=== PATIENT | female | born 1965 | race Caucasian/White ===

== ENCOUNTER 2019-08-07 17:27 | Inpatient (IN) | payer OTHER ==
[~2019-08-07] VITALS: Ht 162.6 cm; Wt 126.9 kg
[2019-08-07] MEDS ORDERED: POTA8 PO (17:44)
[2019-08-07] MEDS ORDERED: GABA300 PO (17:44)
[2019-08-07] MEDS ORDERED: FURO40 PO (17:44)
[2019-08-07] MEDS ORDERED: BACL20 PO (17:45)
[2019-08-07] MEDS ORDERED: Catapres-Tts 11 EACH PO (17:45)
[2019-08-07] MEDS ORDERED: AMLO10 PO (17:45)
[2019-08-07] MEDS ORDERED: ALLO100 PO (17:46)
[2019-08-07] MEDS ORDERED: LISI20 PO (17:46)
[2019-08-07] MEDS ORDERED: MELO7.5 PO (17:46)
[2019-08-07] MEDS ORDERED: NICO21TP TOP (17:47)
[2019-08-07] MEDS ORDERED: TIOT18 INH (17:47)
[2019-08-07 18:04] LABS: PCO2 Arterial 60.1 mmHg (35-45); PO2 Arterial 77.4 mmHg (80-100); pH Blood Arterial 7.35 (7.35-7.45)
[2019-08-07 18:15] LABS: BASOPHILS ABSOLUTE AUTO 0.03 K/mm3 (0.00-0.23); BASOPHILS PERCENT AUTO 1 % (0-2); EOSINOPHILS ABSOLUTE AUTO 0.09 K/mm3 (0.00-0.68); EOSINOPHILS PERCENT AUTO 1 % (0-6); Hematocrit 47.4 % (33.0-51.0); Hemoglobin 14.4 g/dL (11.5-16.0); IMMATURE GRAN ABSOLUTE AUTO 0.02 K/mm3 (0.00-0.10); IMMATURE GRAN PERCENT AUTO 0 % (0-1); LYMPHOCYTES ABSOLUTE AUTO 1.52 K/mm3 (0.84-5.20); LYMPHOCYTES PERCENT AUTO 24 % (21-46); MONOCYTES ABSOLUTE AUTO 0.37 K/mm3 (0.16-1.47); MONOCYTES PERCENT AUTO 6 % (4-13); Mean Corpuscular HGB 26.7 pg (26.0-34.0); Mean Corpuscular HGB Conc 30.4 g/dL (31.5-36.5); Mean Corpuscular Volume 88 fL (80-100); Mean Platelet Volume 9.6 fL (9.1-12.4); NEUTROPHILS ABSOLUTE AUTO 4.42 K/mm3 (1.96-9.15); NEUTROPHILS PERCENT AUTO 69 % (41-73); Platelet Count 244 K/mm3 (150-400); RDW Standard Deviation 63.1 fL (35.1-46.3); White Blood Cell Count 6.45 K/mm3 (4.00-11.30)
[2019-08-07 18:48] LABS: Alanine Aminotransfer (ALT/SGP 21 U/L (12-78); Albumin, Blood 2.8 g/dL (3.4-5.0); Albumin/Globulin Ratio 0.7 (0.8-1.8); Alk Phos 117 U/L (50-136); Anion Gap 6 mmol/L (6-16); Aspartate Aminotrans (AST/SGOT 16 U/L (12-37); Bilirubin, Total 0.3 mg/dL (0.1-1.0); Blood Urea Nitrogen 15 mg/dL (8-24); Bun/Creatinine Ratio 21.1 (12.0-20.0); CO2, Blood 30 mmol/L (21-32); Calcium, Blood 8.8 mg/dL (8.5-10.1); Chloride, Blood 101 mmol/L (98-108); Creatinine, Blood 0.71 mg/dL (0.40-1.00); Globulin, Blood 4.1 g/dL (2.2-4.0); Glomerular Filtration Rate >60 (60-); Glucose, Blood 319 mg/dL (70-99); Magnesium, Blood 2.2 mg/dL (1.6-2.4); Potassium, Blood 4.3 mmol/L (3.5-5.5); Sodium, Blood 137 mmol/L (136-145); Total Protein, Blood 6.9 g/dL (6.4-8.2); Troponin I <0.015 ng/mL (0.000-0.040)
[2019-08-07] MEDS ORDERED: CLON.1 PO (22:13)
[2019-08-07] MEDS ORDERED: FLUT1DIS5 INH (22:16)
[2019-08-08 03:01] LABS: BASOPHILS ABSOLUTE AUTO 0.02 K/mm3 (0.00-0.23); BASOPHILS PERCENT AUTO 0 % (0-2); EOSINOPHILS ABSOLUTE AUTO 0.01 K/mm3 (0.00-0.68); EOSINOPHILS PERCENT AUTO 0 % (0-6); Hematocrit 53.5 % (33.0-51.0); Hemoglobin 15.7 g/dL (11.5-16.0); IMMATURE GRAN ABSOLUTE AUTO 0.05 K/mm3 (0.00-0.10); IMMATURE GRAN PERCENT AUTO 1 % (0-1); LYMPHOCYTES PERCENT AUTO 6 % (21-46); MONOCYTES ABSOLUTE AUTO 0.03 K/mm3 (0.16-1.47); MONOCYTES PERCENT AUTO 0 % (4-13); Mean Corpuscular HGB 26.3 pg (26.0-34.0); Mean Corpuscular HGB Conc 29.3 g/dL (31.5-36.5); Mean Corpuscular Volume 90 fL (80-100); Mean Platelet Volume 10.1 fL (9.1-12.4); NEUTROPHILS ABSOLUTE AUTO 6.75 K/mm3 (1.96-9.15); NEUTROPHILS PERCENT AUTO 93 % (41-73); Platelet Count 257 K/mm3 (150-400); RDW Coefficient Variation 20.2 % (11.7-14.2); RDW Standard Deviation 66.2 fL (35.1-46.3); Red Blood Cell Count 5.97 M/mm3 (3.80-5.20); White Blood Cell Count 7.26 K/mm3 (4.00-11.30)
[2019-08-08 03:22] LABS: Anion Gap 4 mmol/L (6-16); Blood Urea Nitrogen 17 mg/dL (8-24); Bun/Creatinine Ratio 29.5 (12.0-20.0); CO2, Blood 28 mmol/L (21-32); Calcium, Blood 8.3 mg/dL (8.5-10.1); Chloride, Blood 104 mmol/L (98-108); Creatinine, Blood 0.58 mg/dL (0.40-1.00); Glomerular Filtration Rate >60 (60-); Glucose, Blood 388 mg/dL (70-99); Potassium, Blood 5.3 mmol/L (3.5-5.5); Sodium, Blood 136 mmol/L (136-145)
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
--- NOTE | 2019-08-08 07:43 | NUR ---
AM NOTE... ASSUMED CARE OF PT APROX 0700. PT IS A&Ox4 AND SBA IN THE ROOM. PT WAS ADMITTED FOR RESP FAILURE. PT IS ON BIPAP PRN AT 40% FIO2 AND 4-6L NC CONT. L/S COARSE AND DIM T/O WITH FINE CRACKLES NOTED IN THE RLL. PT'S VS STABLE AT THIS TIME, PT IS IN SINUS TACH IN THE LOW 100'S. PT HAS TRACE EDEMA NOTED TO HER BLE. PT IS IN DROPLET ISLOATION FOR R/O COVID-19. CALL LIGHT IN REACH WILL CONTINUE TO MONITOR.
[2019-08-08 08:42] LABS: U Amphetamine Screen Not Detected; U Barbituate Screen Not Detected; U Benzodiazapine Screen Not Detected; U Buprenorphine Screen Not Detected; U Cannabinoids Screen DETECTED; U Cocaine Screen Not Detected; U Methadone Screen Not Detected; U Methamphetamine Screen DETECTED; U Opiates Screen Not Detected; U Oxycodone Screen Not Detected; U Phencyclidine Screen Not Detected; U Propoxyphene Screen Not Detected
[2019-08-08 10:02] LABS: Adenovirus Not Detected (NOT DETECT); Bordetella pertussis Not Detected (NOT DETECT); Chlamydophila pneumoniae Not Detected (NOT DETECT); Coronavirus 229E Not Detected (NOT DETECT); Coronavirus HKU1 Not Detected (NOT DETECT); Coronavirus NL63 Not Detected (NOT DETECT); Coronavirus OC43 Not Detected (NOT DETECT); Human Metapneumovirus Not Detected (NOT DETECT); Human Rhinovirus/Enterovirus Not Detected (NOT DETECT); Influenza A/2009-H1 Not Detected (NOT DETECT); Influenza A/H1 Not Detected (NOT DETECT); Influenza A/H3 Not Detected (NOT DETECT); Influenza B Not Detected (NOT DETECT); Mycoplasma pneumoniae Not Detected (NOT DETECT); Parainfluenza Virus 1 Not Detected (NOT DETECT); Parainfluenza Virus 2 Not Detected (NOT DETECT); Parainfluenza Virus 3 Not Detected (NOT DETECT); Parainfluenza Virus 4 Not Detected (NOT DETECT); Respiratory Syncytial Virus Not Detected (NOT DETECT)
--- NOTE | 2019-08-08 18:27 | NUR ---
SHIFT SUMMARY... NO ACUTE NEGATIVE CHANGES NOTED THIS SHIFT. PT'S VS HAVE BEEN STABLE. PT HAS BEEN ON THE BIPAP WITH SLEEP, WHEN AWAKE PT HAS BEEN ON 6L NC WITH O2 SATS 88-92%. PT STATES THESE ARE BETTER NUMBERS THAN SHE NORMALLY HAS AT BASELINE. PT HAS BEEN IND TO THE BSC. BEDBATH/SHAMPOO/SHAVE WAS GIVEN TO THE PT THIS AFTERNOON. CALL LIGHT IN REACH WILL CONTINUE TO MONITOR UNTIL REPORT IS GIVEN TO ONCOMING RN.
--- NOTE | 2019-08-09 02:02 | NUR ---
ASSUMED CARE OF PATIENT AT [facility] 1900 FROM EDNA Cain RN. PATIENT ALERT AND ORIENTED X4; INDEPDENDENT TO BEDSIDE COMMODE PER DAYSHIFT. PATIENT ANXIOUS; REPORTS SHE THINKS HER NICOTINE PATCH IS WEARING OFF. PATIENT ANXIOUS ABOUT GETTING DISCHARGED. PATIENT DENIES PAIN, NUMBNESS, DIZZINESS OR NAUSEA. PATIENT REPORTS SHE IS ALWAYS HUNGRY AND REPORTS HER TONGUE HAS TINGLING AT TIMES. ST ON TELE; OXYGEN SATURATION ABOVE 90% ON 6LPM VIA NC; REQUESTED HIGH FLOW NC FROM RT; PATIENT USES BIPAP AT ALSO W/ 60% FIO2. PIV X2 S/L. PATIENT CURRENTLY RESTING IN BED; CALL LIGHT IN REACH; BED IN LOWEST POSISTION; WILL CONTINUE TO MONITOR AND ASSESS UNTIL END OF SHIFT.
--- NOTE | 2019-08-09 06:11 | NUR ---
PATIENT SLEPT ABOUT EIGHT HOURS; FIVE HOURS WITH BIPAP ON. VSS. NO OTHER ACUTE CHANGES TO REPORT. WILL CONTINUE TO MONITOR AND ASSESS UNTIL END OF SHIFT.
--- NOTE | 2019-08-09 07:38 | NUR ---
AM NOTE... ASSUMED CARE OF PT APROX 0700. PT IS A&Ox4 AND IND IN THE ROOM. PT IS ON 6L HI FLOW WITH O2 SATS >90%. VS STABLE AT THIS TIME. L/S DIM T/O. TRACE EDEMA NOTED TO BLE ON ASSESSMENT. BT PRESENT AND HYPERACTIVE, ABD SOFT AND NONTENDER TO PALP. RR IN THE 20'S EVEN AND SLIGHTLY LABORED. PT BECOMES DYSPNIC WITH ACTIVITY. PT STATES SHE FEELS BETTER THAN SHE DID YESTERDAY. STILL WAITING FOR COVID-19 RULE OUT RESULTS. CALL LIGHT IN REACH WILL CONTINUE TO MONITOR.
--- NOTE | 2019-08-09 18:39 | NUR ---
SHIFT SUMMARY... NO ACUTE NEGATIVE CHANGES THIS SHIFT. PT'S VS HAVE BEEN STABLE. PT HAS BEEN ON 6L NC WITH O2 SATS >88%. PT HAS BEEN IND TO THE BATHROOM AND ALSO TOOK A SHOWER THIS SHIFT. PT HAS NOT USED THE BIPAP SINCE WAKING UP. PT HAS BEEN ANXIOUS AND EMOTIONAL THIS SHIFT. PT'S COVID-19 RESULTS CAME BACK NEGATIVE. CALL LIGHT IN REACH WILL CONTINUE TO MONITOR UNTIL REPORT IS GIVEN TO ONCOMING RN
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
--- NOTE | 2019-08-10 06:46 | NUR ---
PATIENT SLEPT ABOUT EIGHT HOURS WITH BIPAP ON. VSS. NO OTHER ACUTE CHANGES TO REPORT. WILL CONTINUE TO MONITOR AND ASSESS UNTIL END OF SHIFT.
--- NOTE | 2019-08-10 16:39 | NUR ---
SHIFT SUMMARY NO ACUTE CHANGES NOTED THROUGH THE SHIFT. PT REMAINS ON 6L O2 VIA NC, VSS, UP TO THE BATHROOM INDEPENDENTLY. PT S USING THE IMCENTING SPIROMETER/ "PICKLE" LISSET APPROX Q1 HR WHILE AWAKE. PO INTAKE WNL, PT EDUCATION PROVIDED ABOUT GLUCOSE LEVELS AND DIET. VOIDING WNL. CALL LIGHT IN REACH, TM
--- NOTE | 2019-08-10 22:45 | NUR ---
ASSUMED CARE OF PATIENT AT [facility] 1900 FROM JONATHAN Vasquez RN. MANAGER EMPLOYMENT VANESSA Johnson ASSISTING IN CARING FOR PATIENT; AGREE WITH SHIFT ASSESSMENT. PATIENT ALERT AND ORIENTED X4; INDEPDENDENT IN ROOM PER DAYSHIFT. PATIENT ANXIOUS. PATIENT DENIES PAIN, NUMBNESS, DIZZINESS OR NAUSEA. SR ON TELE; OXYGEN SATURATION ABOVE 90% ON 6LPM VIA HF NC. PATIENT USES BIPAP AT NIGHT ALSO W/ 40% FIO2. PIV X1 S/L. PATIENT CURRENTLY RESTING IN BED; CALL LIGHT IN REACH; BED IN LOWEST POSISTION; WILL CONTINUE TO MONITOR AND ASSESS UNTIL END OF SHIFT.
--- NOTE | 2019-08-11 06:12 | NUR ---
END OF SHIFT SUMMARY NO ACUTE CHANGES THROUGHOUT THE NIGHT. VSS. PATIENT SLEPT APROX 8 HOURS ON BIPAP. PT WOKE UP A FEW TIMES ASKING FOR SNACKS, STATED SHE WAS HUNGRIER THAN USUAL. GAVE PATIENT CRACKERS. CALL LIGHT WITHIN REACH. BED IN LOWEST POSITION. WILL CONTINUE TO MONITOR UNTIL END OF SHIFT.
--- NOTE | 2019-08-11 10:38 | NUR ---
UPDATE PT ALERT AND ORIENTED. VS STABLE. O2 SATS REMAIN ABOVE 90% ON 6L NC. BIPAP AT NIGHT. BP STABLE. PT DENIES ANY PAIN. PT ABLE TO WALK TO BATHROOM INDEPENDENTLY. PT ANXIOUS AT TIMES. PLAN TO TRANSFER TO MEDICAL FLOOR. REPORT CALLED TO MEDICAL FLOOR RN.
--- NOTE | 2019-08-11 11:43 | NUR ---
TOOK OVER CARE OF PT. TRANSPERED FROM PCU 13. PT SETTLED INTO ROOM ORIENTED TO STAFF AND CALL LIGHT WITHIN REACH. DENIES ANY PAIN AT THIS TIME.
--- NOTE | 2019-08-11 17:40 | NUR ---
PT HAS BEEN DOING WELL NO DISTRESS NOTED AT THIS TIME. AOX4 AND COOPERATIVE OF CARE. PT INDEPENDENT IN ROOM AND CAN CALL APPROPRIATELY. CALL LIGHT WITHIN REACH.
[2019-08-12 05:07] LABS: PCO2 Arterial 64.3 mmHg (35-45); PO2 Arterial 71.5 mmHg (80-100)
--- NOTE | 2019-08-12 07:06 | NUR ---
SUMMARY PT HAD NO ISSUES NOTED. PT WAS KEPT ON NC DURING THE NIGHT DUE TO ABG THIS AM. PT SLEPT WELL T/O SHIFT. PT AWAKE EARLY THIS AM AND IN [employer]IR[employer].
--- NOTE | 2019-08-13 04:13 | NUR ---
SUMMARY PT HAD NO ISSUES. PT SLEPT W/ OUT BIPAP THIS SHIFT. PT REMAINED ON NASAL CANNULA. PT SPO2 DID DROP BELOW 88% AT TIMES. PT CURRENTLY SLEEPING AND IN NO DISTRESS. CALL LIGHT IN REACH.
[2019-08-13 08:28] LABS: PCO2 Arterial 50 mmHg (35-45); PO2 Arterial 52 mmHg (80-100); pH Blood Arterial 7.47 (7.35-7.45)
[2019-08-13] MEDS ORDERED: HYDHCL25 PO (13:56)
[2019-08-13] MEDS ORDERED: IPRAT-ALBUT 0.5-3 ML INH (13:57)
[2019-08-13] MEDS ORDERED: PRED20 PO (13:58)
[2019-08-13] MEDS ORDERED: HUMULIN 70100 UNIT/4 SC (13:59)
[2019-08-13] MEDS ORDERED: METF500 PO (14:02)
--- NOTE | 2019-08-13 16:08 | NUR ---
DISCHARGE NOTE PT ALERT/ORIENTED/COOPERATIVE WITH CARE THROUGHOUT THIS SHIFT. PT INDEPENDENT IN THE ROOM. PT ON 4L O2 THROUGHOUT THIS SHIFT. PT AMBULTATED APPROX 200 FEET IN THE HALLS THIS SHIFT. IV REMOVED PRIOR TO DISCHARGE. PT RECEIVED DISCHARGE INSTRUCTIONS AND MEDICATION, NO QUESTIONS AT THIS TIME. PT WITHOUT RESPIRATORY DISTRESS DURING THIS SHIFT. PT TO VEHICLE BY YANE CAMERON CNA. PROVIDING TRANSPORTATION HOME.
== END 2019-08-13 15:56 | disposition home or self-care (01) | DRG 871 ==
LOC: ER 17:27 → PCU 21:35 → MEDS 21:35 → PCU 21:59 → MEDS 08-11 11:15
PROVIDERS: Emergency Medicine; Hospitalist; ADMIT Family Medicine
DX: A41.9 Sepsis, unspecified organism (principal); J96.21 Acute and chronic respiratory failure with hypoxia; J96.22 Acute and chronic respiratory failure with hypercapnia; J18.9 Pneumonia, unspecified organism; J44.1 Chronic obstructive pulmonary disease with (acute) exacerbation; J44.0 Chronic obstructive pulmonary disease with (acute) lower respiratory infection; Z68.42 Body mass index [BMI] 45.0-49.9, adult; R65.20 Severe sepsis without septic shock; E11.65 Type 2 diabetes mellitus with hyperglycemia; I11.0 Hypertensive heart disease with heart failure; I50.9 Heart failure, unspecified; G47.33 Obstructive sleep apnea (adult) (pediatric); F19.10 Other psychoactive substance abuse, uncomplicated; Z99.81 Dependence on supplemental oxygen; E66.01 Morbid (severe) obesity due to excess calories; F17.210 Nicotine dependence, cigarettes, uncomplicated; Z20.828 Contact with and (suspected) exposure to other viral communicable diseases; I95.9 Hypotension, unspecified; Z79.4 Long term (current) use of insulin; Z79.1 Long term (current) use of non-steroidal anti-inflammatories (NSAID)
CPT/HCPCS: 0099U; 36415; 36600; 71045; 80048; 80053; 82803; 82947; 83036; 83605; 83735; 83880; 84484; 85025; 87040; 93005; 93010; 94640; 94660; 94760; 94761; 94762; 96374; 99285-25; G0480; J0456; J0696; J1650; J1815; J2920; J2930; J7050; J7120; J7512; U0002; U0003